=== PATIENT | female | born 1995 | race Two or more races ===

== ENCOUNTER 2019-12-01 09:23 | Inpatient (IN) | payer OTHER ==
[2019-12-01] MEDS ORDERED: ONDANSETRON 4 MG/2 ML VIAL IVPUSH ONE (09:31)
[2019-12-01] MEDS ORDERED: ACETAMINOPHEN 1000 MG/100 ML VIAL (NON FORMULARY) IVPB ONE (09:31)
[2019-12-01] MEDS ORDERED: SODIUM CHLORIDE 1,000 ML IV STA (09:31)
--- NOTE | 2019-12-01 09:32 | PDOC ---
Rapid Medical Evaluation Chief Complaint: Pain Time Seen by Provider: 12/01/19 09:28 Medical Evaluation: 12/01/19 09:28 Pt is a 24 y/o F BIBA, presents for flank pain and nausea since Friday. Exam: R CVA tenderness, Febrile 101F oral Orders: labs, fluids, urine Pt to proceed to the ER for further evaluation Discharge Disposition - Diagnosis Flank pain - Referrals - Patient Instructions - Post Discharge Activity
[2019-12-01] MEDS ORDERED: ACETAMINOPHEN INJECTION 100 ML IVPB ONE (09:56)
[2019-12-01 10:11] LABS: BASO % 0.3 % (0-2.0); EOS % 0.6 % (0-4.5); HEMATOCRIT 39.7 % (32.4-45.2); HEMOGLOBIN 12.6 GM/dL (10.7-15.3); LYMPH % 5.1 % (8-40); MCH 25.5 pg (25.7-33.7); MCHC 31.8 g/dl (32.0-36.0); MEAN CELL VOLUME 80.1 fl (80-96); MONO % 0.7 % (3.8-10.2); NEUT % 93.3 % (42.8-82.8); PLATELET COUNT 210 K/MM3 (134-434); RBC 4.95 M/mm3 (3.60-5.2); RDW 14.9 % (11.6-15.6); WHITE BLOOD COUNT 9.8 K/mm3 (4.0-10.0)
--- NOTE | 2019-12-01 10:23 | PDOC ---
Documentation entered by Jeane Olsen SCRIBE, acting as scribe for David Bee MD. David Bee MD: This documentation has been prepared by the Pretty dunbar Nirvannie, SCRIBE, under my direction and personally reviewed by me in its entirety. I confirm that the documentation accurately reflects all work, treatment, procedures, and medical decision making performed by me. History of Present Illness - General Chief Complaint: Pain Stated Complaint: LOWER BACK PAIN Time Seen by Provider: 12/01/19 09:28 History Source: Patient Exam Limitations: No Limitations - History of Present Illness Initial Comments: 12/01/19 10:06 The patient is a 24 year old female with no significant past medical history who presents to the ED via EMS with 3 days of lower back pain with radiation to the right flank. As per patient, she experiences similar symptoms on her menses but it usually occurs in the beginning of her cycle and resolves with the aid of Advil or Midol. Today, she notes it is the end of her cycle and her symptoms persisted. Pt states she was nauseous in the ambulance, which since resolved. She denies any vomiting. Notes that she took one of her mother's oxycodones before arrival. No prior history of UTI or history of renal calculi. She denies any abdominal pain. She denies any dysuria, urinary frequency, urinary urgency, or hematuria. Allergies: NKDA Past History - Medical History Allergies/Adverse Reactions: Allergies Allergy/AdvReac Type Severity Reaction Status Date / Time No Known Allergies Allergy Verified 12/01/19 09:30 Home Medications: Ambulatory Orders NK [No Known Home Medication] 12/01/19 COPD: No - Psycho-Social/Smoking History Smoking History: Never smoked - Substance Abuse Hx (Audit-C & DAST Scrn) How often the patient has a drink containing alcohol: Never Score: In Men: 4 or > Positive; In Women: 3 or > Positive: 0 Screen Result (Pos requires Nsg. Audit-10AR): Negative Review of Systems - Review of Systems Able to Perform ROS?: Yes Comments:: 12/01/19 10:07 GENERAL/CONSTITUTIONAL: No fever or chills. No weakness. HEAD, EYES, EARS, NOSE AND THROAT: No change in vision. No ear pain or discharge. No sore throat. CARDIOVASCULAR: No chest pain, no shortness of breath, no loss of consciousness RESPIRATORY: No cough, wheezing, or hemoptysis. GASTROINTESTINAL: No nausea, vomiting, diarrhea or constipation. GENITOURINARY: +Right flank pain. No dysuria, frequency, or change in urination. MUSCULOSKELETAL: +Right lower back pain. No joint or muscle swelling or pain. No neck or back pain. SKIN: No rash NEUROLOGIC: No vertigo, no change in strength/sensation. ENDOCRINE: No increased thirst. No abnormal weight change. HEMATOLOGIC/LYMPHATIC: No anemia, easy bleeding, or history of blood clots. ALLERGIC/IMMUNOLOGIC: No hives or skin allergy. All Other Systems: Reviewed and Negative *Physical Exam - Vital Signs Last Vital Signs Temp Pulse Resp BP Pulse Ox 101.8 F H 121 H 18 132/91 100 12/01/19 09:28 12/01/19 09:28 12/01/19 09:28 12/01/19 09:28 12/01/19 09:28 - Physical Exam 12/01/19 10:25 "GENERAL: Awake, alert, and fully oriented, in no acute distress. HEAD: No signs of trauma EYES: PERRLA, EOMI, sclera anicteric, conjunctiva clear ENT: Auricles normal inspection, hearing grossly normal, nares patent, oropharynx clear without exudates. Moist mucosa NECK: Nontender, no stepoffs, Normal ROM, supple, no lymphadenopathy, JVD, or masses LUNGS: Breath sounds equal, clear to auscultation bilaterally. No wheezes, and no crackles HEART: Regular rate and rhythm, normal S1 and S2, no murmurs, rubs or gallops ABDOMEN: Soft, nontender, normoactive bowel sounds. No guarding, no rebound. No masses EXTREMITIES: Normal range of motion, no edema. No clubbing or cyanosis. No cords, erythema, or tenderness NEUROLOGICAL: Cranial nerves II through XII intact. 5/5 strength and sensation in all extremities, Normal speech, normal gait, normal cerebellar function SKIN: Warm, Dry, normal turgor, no rashes or lesions noted. BACK: + R CVAT ED Treatment Course - LABORATORY CBC & Chemistry Diagram: 12/01/19 09:40 12/01/19 09:40 Medical Decision Making - Medical Decision Making 12/01/19 10:25 24 F with R flank pain. Suspect pyelo vs nephrolithiasis. Pt with benign abdomen. No RUQ or RLQ tenderness. - Labs, UA - CT - IVF, tylenol 12/01/19 12:50 UA consistent with UTI Pt with bands >10% CT shows R renal stone, R hydronephrosis, no obvious obstructing stone Will admit for pyelo vs infected stone Ceftriaxone given Discharge - Discharge Information Problems reviewed: Yes Clinical Impression/Diagnosis: Flank pain, Pyelonephritis, Nephrolithiasis - Admission Yes - Follow up/Referral - Patient Discharge Instructions - Post Discharge Activity
[2019-12-01 10:42] LABS: INR 0.97 (0.83-1.09); PROTHROMBIN TIME (PATIENT) 11.5 SEC (9.7-13.0)
[2019-12-01 10:47] LABS: ALBUMIN 3.6 g/dl (3.4-5.0); ALK PHOS 61 U/L (45-117); ANION GAP 10 MMOL/L (8-16); BILIRUBIN,TOTAL 0.4 mg/dL (0.2-1); BLOOD UREA NITROGEN 8.4 mg/dL (7-18); CALCIUM 8.5 mg/dL (8.5-10.1); CHLORIDE 110 mmol/L (98-107); CO2 21 mmol/L (21-32); CREATININE 0.8 mg/dL (0.55-1.3); GLUCOSE,RANDOM 97 mg/dL (74-106); POTASSIUM 4.3 mmol/L (3.5-5.1); SGOT/AST 33 U/L (15-37); SGPT/ALT 14 U/L (13-61); SODIUM 141 mmol/L (136-145)
[2019-12-01 10:50] LABS: ANISOCYTOSIS 0; MACROCYTOSIS 0; PLATELET ESTIMATE NORMAL
[2019-12-01 11:18] LABS: EPI CELLS 4 /uL (0-25.1); HCG,QUALITATIVE URINE Negative; HYALINE CASTS 2 /uL (0-3.1); PH,URINE 5.5 (5.0-8.0); URINE APPEARANCE CLOUDY; URINE BILIRUBIN NEGATIVE (NEGATIVE); URINE COLOR YELLOW; URINE GLUCOSE (UA) NEGATIVE (NEGATIVE); URINE KETONE NEGATIVE (NEGATIVE); URINE LEUK ESTERASE 2+ (NEGATIVE); URINE NITRITE POSITIVE (NEGATIVE); URINE PROTEIN 2+ (NEGATIVE); URINE RBC 87 /uL (0-23.9); URINE UROBILINOGEN 0.2 mg/dL (0.2-1.0); URINE WBC 1083 /uL (0-25.8)
[2019-12-01] MEDS ORDERED: CEFTRIAXONE 1,000 MG in DEXTROSE 5%-WATER - 50 ML IVPB ONE (11:20)
[2019-12-01] MEDS ORDERED: cefTRIAXone SODIUM 1 GM VIAL ONE (11:21)
[2019-12-01] MEDS ORDERED: KETOROLAC TROMETHAMINE 15 MG/ML VIAL IVPUSH PRN ×2 (13:33→14:29)
[2019-12-01] MEDS ORDERED: TAMSULOSIN HCL 0.4 MG CAP PO ONE (13:38)
--- NOTE | 2019-12-01 14:00 | HP ---
CHIEF COMPLAINT: Right sided back/flank pain PCP: None HISTORY OF PRESENT ILLNESS: This is a 24 year old female with no PMH, presented to the ER with R flank and back pain. The pain began while she was asleep, it was sudden in onset, 9/10 in intensity, constant in nature, sharp in quality, radiating to the R flank, aggravated by movement, and partially relieved by Advil. This was associated with a subjective fever this morning, but no diaphoresis, chills, hematuria, dysuria, SOB, nausea, vomiting, or diarrhea. She has had similar pain in the back, immediately after cessation of her menstrual cycle, relieved by Advil. However, this pain began during her menstrual cycle and has only partially resolved with Advil. She has no family history of renal stones/colic. ER course was notable for: (1) UA: 2+ LE, 2+ Blood, 2+ Protein 1083 WBC, >10k bacteria (2) CTAP wo contrast: 2mm non obstructing R renal stone with mild hydronephrosis (3) Ceftriaxone 1g Recent Travel: Denies PAST MEDICAL HISTORY: None PAST SURGICAL HISTORY: None Social History: Smoking: denies Alcohol: denies Drugs: denies Allergies No Known Allergies Allergy (Verified 12/01/19 09:30) HOME MEDICATIONS: Home Medications Medication Instructions Recorded NK [No Known Home Medication] 12/01/19 REVIEW OF SYSTEMS CONSTITUTIONAL: fever Absent: fever, chills, diaphoresis, generalized weakness, malaise, loss of appetite, weight change HEENT: Absent: rhinorrhea, nasal congestion, throat pain, throat swelling, difficulty swallowing, mouth swelling, ear pain, eye pain, visual changes CARDIOVASCULAR: Absent: chest pain, syncope, palpitations, irregular heart rate, lightheadedness, peripheral edema RESPIRATORY: Absent: cough, shortness of breath, dyspnea with exertion, orthopnea, wheezing, stridor, hemoptysis GASTROINTESTINAL: Absent: abdominal pain, abdominal distension, nausea, vomiting, diarrhea, constipation, melena, hematochezia GENITOURINARY: flank pain Absent: dysuria, frequency, urgency, hesitancy, hematuria, flank pain, genital pain MUSCULOSKELETAL: Absent: myalgia, arthralgia, joint swelling, back pain, neck pain SKIN: Absent: rash, itching, pallor HEMATOLOGIC/IMMUNOLOGIC: Absent: easy bleeding, easy bruising, lymphadenopathy, frequent infections ENDOCRINE: Absent: unexplained weight gain, unexplained weight loss, heat intolerance, cold intolerance NEUROLOGIC: Absent: headache, focal weakness or paresthesias, dizziness, unsteady gait, seizure, mental status changes, bladder or bowel incontinence PSYCHIATRIC: Absent: anxiety, depression, suicidal or homicidal ideation, hallucinations. PHYSICAL EXAMINATION Vital Signs - 24 hr 12/01/19 12/01/19 12/01/19 09:28 11:07 12:18 Temperature 101.8 F H 99.7 F H Pulse Rate 121 H Pulse Rate [ 82 Left] Respiratory 18 16 Rate Blood Pressure 132/91 Blood Pressure 103/58 L [Right Arm] O2 Sat by Pulse 100 99 Oximetry (%) GENERAL: Awake, alert, and fully oriented, in no acute distress. HEAD: Normal with no signs of trauma. EYES: Pupils equal, round and reactive to light, extraocular movements intact, sclera anicteric, conjunctiva clear. No lid lag. EARS, NOSE, THROAT: Ears normal, nares patent, oropharynx clear without exudates. Moist mucous membranes. NECK: Normal range of motion, supple without lymphadenopathy, JVD, or masses. LUNGS: Breath sounds equal, clear to auscultation bilaterally. No wheezes, and no crackles. No accessory muscle use. HEART: Regular rate and rhythm, normal S1 and S2 without murmur, rub or gallop. ABDOMEN: Soft, nontender, not distended, moderate R CVA tenderness MUSCULOSKELETAL: Normal range of motion at all joints. No bony deformities or tenderness. No CVA tenderness. UPPER EXTREMITIES: 2+ pulses, warm, well-perfused. No cyanosis. No clubbing. No peripheral edema. LOWER EXTREMITIES: Band Aid over anterior aspect of L distal lower extremity (mosquito bite), no edema, pulses intact NEUROLOGICAL: Cranial nerves II-XII intact. Normal speech. Normal gait. PSYCHIATRIC: Cooperative. Good eye contact. Appropriate mood and affect. SKIN: Warm, dry, normal turgor, no rashes or lesions noted, normal capillary refill. Laboratory Results - last 24 hr 12/01/19 12/01/19 12/01/19 09:40 09:40 09:40 WBC 9.8 RBC 4.95 Hgb 12.6 Hct 39.7 MCV 80.1 MCH 25.5 L MCHC 31.8 L RDW 14.9 Plt Count 210 MPV 10.0 Absolute Neuts (auto) 9.2 H Neutrophils % 93.3 H Neutrophils % (Manual) 81.1 Band Neutrophils % 10.4 Lymphocytes % 5.1 L Lymphocytes % (Manual) 5.7 L Monocytes % 0.7 L Monocytes % (Manual) 0 L Eosinophils % 0.6 Eosinophils % (Manual) 0.9 Basophils % 0.3 Basophils % (Manual) 0.0 Myelocytes % (Man) 0 Promyelocytes % (Man) 0 Blast Cells % (Manual) 0 Nucleated RBC % 0 Metamyelocytes 0 Hypochromia 0 Platelet Estimate Normal Polychromasia 0 Anisocytosis 0 Microcytosis 0 Macrocytosis 0 PT with INR 11.50 INR 0.97 Sodium 141 Potassium 4.3 Chloride 110 H Carbon Dioxide 21 Anion Gap 10 BUN 8.4 Creatinine 0.8 Est GFR (CKD-EPI)AfAm 120.44 Est GFR (CKD-EPI)NonAf 103.92 Random Glucose 97 Calcium 8.5 Total Bilirubin 0.4 AST 33 ALT 14 Alkaline Phosphatase 61 Total Protein 7.0 Albumin 3.6 Urine Color Urine Appearance Urine pH Ur Specific [place] Urine Protein Urine Glucose (UA) Urine Ketones Urine Blood Urine Nitrite Urine Bilirubin Urine Urobilinogen Ur Leukocyte Esterase Urine WBC (Auto) Urine RBC (Auto) Urine Casts (Auto) U Epithel Cells (Auto) Urine Bacteria (Auto) Urine HCG, Qual 12/01/19 11:00 WBC RBC Hgb Hct MCV MCH MCHC RDW Plt Count MPV Absolute Neuts (auto) Neutrophils % Neutrophils % (Manual) Band Neutrophils % Lymphocytes % Lymphocytes % (Manual) Monocytes % Monocytes % (Manual) Eosinophils % Eosinophils % (Manual) Basophils % Basophils % (Manual) Myelocytes % (Man) Promyelocytes % (Man) Blast Cells % (Manual) Nucleated RBC % Metamyelocytes Hypochromia Platelet Estimate Polychromasia Anisocytosis Microcytosis Macrocytosis PT with INR INR Sodium Potassium Chloride Carbon Dioxide Anion Gap BUN Creatinine Est GFR (CKD-EPI)AfAm Est GFR (CKD-EPI)NonAf Random Glucose Calcium Total Bilirubin AST ALT Alkaline Phosphatase Total Protein Albumin Urine Color Yellow Urine Appearance Cloudy Urine pH 5.5 Ur Specific [place] 1.019 Urine Protein 2+ H Urine Glucose (UA) Negative Urine Ketones Negative Urine Blood 2+ H Urine Nitrite Positive H Urine Bilirubin Negative Urine Urobilinogen 0.2 Ur Leukocyte Esterase 2+ H Urine WBC (Auto) 1083 Urine RBC (Auto) 87 Urine Casts (Auto) 2 U Epithel Cells (Auto) 4 Urine Bacteria (Auto) >10,000 Urine HCG, Qual Negative ASSESSMENT/PLAN: 24 year old female with no PMH, presented to the ER with R flank pain for the past 3 days, found to have 2mm non obstructing R renal stone with mild hydronephrosis and asymptomatic UTI on UA, admitted for management of nephrolithiasis/pyelonephritis. #Obstructing calculus - Unclear etiology, will strain urine and order Urine Ca to explore potential causes - CTAP wo contrast: 2mm non obstructing R renal stone with mild hydronephrosis - No evidence of sepsis, stone <10mm, no indication for urgent ESWL/nephrolithotomy, will facilitate stone passage and consult urology - Urology (Dr. Luu) consulted - Started on Tamsulosin 0.4mg daily - Started on Ketorolac 15mg Q6H for pain control - WBC 12.5 with ANC 11.1 with stable vitals, likely reactive to stress from pain, will monitor and hold off on abx for now - BP elevation also likely 2/2 pain, will monitor #UTI/Hematuria - UA: 2+ LE, 2+ Blood, 2+ Protein 1083 WBC, >10k bacteria - Ceftriaxone 1g daily - N/S @ 100 started - Urine cx sent #Proteinuria - Proteinuria likely post-renal due to concurrent infection - Will monitor for now, recommend repeat UA once infection subsides to check for protein #FEN - N/S @ 100 - NPO for possible procedure in AM #Prophylaxis - SCDs, holding chemical AC for possible procedure in AM #Dispo - Will monitor in M/S and F/U with urology recs for procedural intervention vs passive stone facilitation Visit type - Emergency Visit Emergency Visit: Yes ED Registration Date: 12/01/19 Care time: The patient presented to the Emergency Department on the above date and was hospitalized for further evaluation of their emergent condition. - New Patient This patient is new to me today: Yes Date on this admission: 12/02/19 - Critical Care Critical Care patient: No ATTENDING PHYSICIAN STATEMENT I saw and evaluated the patient. I reviewed the resident's note and discussed the case with the resident. I agree with the resident's findings and plan as documented. SUBJECTIVE: OBJECTIVE: ASSESSMENT AND PLAN:
--- NOTE | 2019-12-01 14:18 | PN ---
Teaching Attending Note Name of Resident: Alvin Cottrell ATTENDING PHYSICIAN STATEMENT I saw and evaluated the patient. I reviewed the resident's note and discussed the case with the resident. I agree with the resident's findings and plan as documented. SUBJECTIVE: Right side pain 24 y/o female without any pmhx presents with acute onset right sided flank pain. Pain began friday and has been intermittent until today when it was more intense in pain bringing her to the ED for further eval. She deneis any blood in her urine, no dysuria or urine frequency. Pain radiates towards the front of her abdomen. No fevers, chills, nausea or vomiting PMHX: None PSHX: None Meds: None Allergies: NKDA Social HX: denies nay tobacco, drug or alcohol use Family Hx: denies OBJECTIVE: Vital Signs Temperature 99.7 F H 12/01/19 11:07 Pulse Rate 82 12/01/19 12:18 Respiratory Rate 16 12/01/19 12:18 Blood Pressure 103/58 L 12/01/19 12:18 O2 Sat by Pulse Oximetry (%) 99 12/01/19 12:18 Gen: Pt nontoxic, A and O, NAD HEENT: NC/AT, EOMI, Orophayrnx - clear Neck: supple CV: Pos S1, S2, RRR Chest: CTA misty, no r/r/w Abd: soft, NT, ND, Pos BS, no suprapubic tenderness Back: Pos Right CVA Tenderness to palpation Ext: No c/c/e Skin: no rashes CBC,CMP WBC 9.8 K/mm3 (4.0-10.0) 12/01/19 09:40 RBC 4.95 M/mm3 (3.60-5.2) 12/01/19 09:40 Hgb 12.6 GM/dL (10.7-15.3) 12/01/19 09:40 Hct 39.7 % (32.4-45.2) 12/01/19 09:40 MCV 80.1 fl (80-96) 12/01/19 09:40 MCH 25.5 pg (25.7-33.7) L 12/01/19 09:40 MCHC 31.8 g/dl (32.0-36.0) L 12/01/19 09:40 RDW 14.9 % (11.6-15.6) 12/01/19 09:40 Plt Count 210 K/MM3 (134-434) 12/01/19 09:40 MPV 10.0 fl (7.5-11.1) 12/01/19 09:40 Absolute Neuts (auto) 9.2 K/mm3 (1.5-8.0) H 12/01/19 09:40 Neutrophils % 93.3 % (42.8-82.8) H 12/01/19 09:40 Neutrophils % (Manual) 81.1 % (42.8-82.8) 12/01/19 09:40 Band Neutrophils % 10.4 % 12/01/19 09:40 Lymphocytes % 5.1 % (8-40) L 12/01/19 09:40 Lymphocytes % (Manual) 5.7 % (8-40) L 12/01/19 09:40 Monocytes % 0.7 % (3.8-10.2) L 12/01/19 09:40 Monocytes % (Manual) 0 % (3.8-10.2) L 12/01/19 09:40 Eosinophils % 0.6 % (0-4.5) 12/01/19 09:40 Eosinophils % (Manual) 0.9 % (0-4.5) 12/01/19 09:40 Basophils % 0.3 % (0-2.0) 12/01/19 09:40 Basophils % (Manual) 0.0 % (0-2.0) 12/01/19 09:40 Myelocytes % (Man) 0 % (0-2) 12/01/19 09:40 Promyelocytes % (Man) 0 % (0-2) 12/01/19 09:40 Blast Cells % (Manual) 0 % (0-0) 12/01/19 09:40 Nucleated RBC % 0 % (0-0) 12/01/19 09:40 Metamyelocytes 0 % (0-2) 12/01/19 09:40 Hypochromia 0 12/01/19 09:40 Platelet Estimate Normal 12/01/19 09:40 Polychromasia 0 12/01/19 09:40 Anisocytosis 0 12/01/19 09:40 Microcytosis 0 12/01/19 09:40 Macrocytosis 0 12/01/19 09:40 Sodium 141 mmol/L (136-145) 12/01/19 09:40 Potassium 4.3 mmol/L (3.5-5.1) 12/01/19 09:40 Chloride 110 mmol/L (98-107) H 12/01/19 09:40 Carbon Dioxide 21 mmol/L (21-32) 12/01/19 09:40 Anion Gap 10 MMOL/L (8-16) 12/01/19 09:40 BUN 8.4 mg/dL (7-18) 12/01/19 09:40 Creatinine 0.8 mg/dL (0.55-1.3) 12/01/19 09:40 Est GFR (CKD-EPI)AfAm 120.44 12/01/19 09:40 Est GFR (CKD-EPI)NonAf 103.92 12/01/19 09:40 Random Glucose 97 mg/dL (74-106) 12/01/19 09:40 Calcium 8.5 mg/dL (8.5-10.1) 12/01/19 09:40 Total Bilirubin 0.4 mg/dL (0.2-1) 12/01/19 09:40 AST 33 U/L (15-37) 12/01/19 09:40 ALT 14 U/L (13-61) 12/01/19 09:40 Alkaline Phosphatase 61 U/L (45-117) 12/01/19 09:40 Total Protein 7.0 g/dl (6.4-8.2) 12/01/19 09:40 Albumin 3.6 g/dl (3.4-5.0) 12/01/19 09:40 CT abd/pelvis: pos right nephrolithiasis with mild right hydronephrosis UA: Pos nitrite, leuk esterase, protein ASSESSMENT AND PLAN: 24 y/o female without pmhx admitted with right nephrolithiasis/right hydro and UTI *right renal colic - due to right nephrolithiasis ?infected stone Uro eval Hydrate generously Analgesics strain urine Cover with rocephin Check urine preg first *UTI - f/u urine culture Rocephin Vitals stable, non toxic *dvt prophy - venodynes while in bed, ambulate Problem List - Problems (1) Nephrolithiasis Code(s): N20.0 - CALCULUS OF KIDNEY (2) Pyelonephritis Code(s): N12 - TUBULO-INTERSTITIAL NEPHRITIS, NOT SPCF ACUTE OR CHRONIC
[2019-12-01] MEDS ORDERED: KETOROLAC TROMETHAMINE 30 MG/1 ML VIAL IVPUSH ONE (15:33)
[2019-12-01] MEDS ORDERED: KETOROLAC TROMETHAMINE 30 MG/1 ML VIAL ONE (15:34)
[2019-12-01] MEDS ORDERED: TAMSULOSIN HCL 0.4 MG CAP ONE (15:37)
[2019-12-01] MEDS: SODIUM CHLORIDE 1,000 ML IV SCH (15:42)
[2019-12-01 17:55] VITALS: BMI 25.0
[2019-12-02] MEDS: SODIUM CHLORIDE 1,000 ML IV SCH ×2 (03:16→17:55)
[2019-12-02 07:23] LABS: HEMATOCRIT 34.7 % (32.4-45.2); HEMOGLOBIN 10.8 GM/dL (10.7-15.3); MCH 24.7 pg (25.7-33.7); MEAN CELL VOLUME 79.6 fl (80-96); PLATELET COUNT 219 K/MM3 (134-434); RBC 4.36 M/mm3 (3.60-5.2); WHITE BLOOD COUNT 15.6 K/mm3 (4.0-10.0)
[2019-12-02 07:32] LABS: INR 1.3 (0.83-1.09); PROTHROMBIN TIME (PATIENT) 15.4 SEC (9.7-13.0)
[2019-12-02 07:57] LABS: ALBUMIN 2.9 g/dl (3.4-5.0); BILIRUBIN,TOTAL 0.6 mg/dL (0.2-1); BLOOD UREA NITROGEN 6.9 mg/dL (7-18); CALCIUM 7.9 mg/dL (8.5-10.1); CREATININE 0.7 mg/dL (0.55-1.3); MAGNESIUM 1.8 mg/dL (1.8-2.4); POTASSIUM 4.2 mmol/L (3.5-5.1); TOT PROT 5.8 g/dl (6.4-8.2)
[2019-12-02] MEDS ORDERED: DEXTROSE 5%-WATER - 50 ML IVPB ONE (09:07)
[2019-12-02] MEDS ORDERED: cefTRIAXone SODIUM 1 GM VIAL ONE (09:07)
[2019-12-02] MEDS: CEFTRIAXONE 1 GM in DEXTROSE 5%-WATER - 50 ML IVPB SCH (09:28)
[2019-12-02] MEDS: TAMSULOSIN HCL 0.4 MG CAP PO SCH (09:28)
[2019-12-02] MEDS ORDERED: ENOXAPARIN NA (PORCINE) 40 MG/0.4 ML DISP.SYRIN SQ SCH (10:00)
--- NOTE | 2019-12-02 16:50 | PN ---
Teaching Attending Note Name of Resident: Vlad Benitez ATTENDING PHYSICIAN STATEMENT I saw and evaluated the patient. I reviewed the resident's note and discussed the case with the resident. I agree with the resident's findings and plan as documented. SUBJECTIVE: Abdominal/flank pain improved. No nausea/vomiting. No fever/chills. OBJECTIVE: Afebrile, Hemodynamically Stable. Last Vital Signs Temp Pulse Resp BP Pulse Ox 98.6 F 99 H 18 123/73 99 12/02/19 14:00 12/02/19 14:00 12/02/19 14:00 12/02/19 14:00 12/02/19 14:00 HEENT - Atraumatic, normocephalic. Heart - S1, S2, RRR Lungs - clear to auscultation Abdomen - Soft, non-tender. No CVA tenderness. Bowel Sounds normal. Extremities - no edema, no calf tenderness. Neuro - AAO x 3. Tone/Power normal all extremities. Laboratory Results - last 24 hr 12/01/19 12/01/19 12/01/19 09:40 13:00 17:23 WBC RBC Hgb Hct MCV MCH MCHC RDW Plt Count MPV PT with INR INR Sodium 141 Potassium 4.3 Chloride 110 H Carbon Dioxide 21 Anion Gap 10 BUN 8.4 Creatinine 0.8 Est GFR (CKD-EPI)AfAm 120.44 Est GFR (CKD-EPI)NonAf 103.92 Random Glucose 97 Calcium 8.5 Phosphorus Magnesium Total Bilirubin 0.4 AST 33 ALT 14 Alkaline Phosphatase 61 Total Protein 7.0 Albumin 3.6 Beta HCG, Quant < 1.0 Cancelled COVID-19 (ANNA) Not detected 12/02/19 12/02/19 12/02/19 06:45 06:45 06:45 WBC 15.6 H RBC 4.36 Hgb 10.8 Hct 34.7 MCV 79.6 L MCH 24.7 L MCHC 31.0 L RDW 15.0 Plt Count 219 MPV 9.0 PT with INR 15.40 H INR 1.30 H Sodium 141 Potassium 4.2 Chloride 110 H Carbon Dioxide 22 Anion Gap 10 BUN 6.9 L Creatinine 0.7 Est GFR (CKD-EPI)AfAm 141.54 Est GFR (CKD-EPI)NonAf 122.12 Random Glucose 87 Calcium 7.9 L Phosphorus 3.0 Magnesium 1.8 Total Bilirubin 0.6 AST 18 ALT 12 L Alkaline Phosphatase 54 Total Protein 5.8 L Albumin 2.9 L Beta HCG, Quant COVID-19 (ANNA) Current Medications Generic Name Dose Route Start Last Admin Trade Name Freq PRN Reason Stop Dose Admin Ceftriaxone Sodium 1 gm/ 50 mls @ 200 mls/hr 12/02/19 10:00 12/02/19 09:28 Dextrose IVPB 200 mls/hr DAILY VANCE Administration Protocol Sodium Chloride 1,000 mls @ 100 mls/hr 12/01/19 14:15 12/02/19 03:16 Normal Saline - IV 100 mls/hr ASDIR VANCE Administration Ketorolac Tromethamine 15 mg 12/01/19 14:29 12/02/19 03:01 Toradol Injection - IVPUSH 12/06/19 13:32 15 mg Q6H PRN Administration PAIN LEVEL 6-10 Tamsulosin HCl 0.4 mg 12/02/19 08:30 12/02/19 09:28 Flomax - PO 0.4 mg DAILY@0830 VANCE Administration Home Medications Medication Instructions Recorded NK [No Known Home Medication] 12/01/19 ASSESSMENT/PLAN: 24 year old female with no significant PMH, presented with acute onset R sided back/flank pain, found to have Nephrolithiasis and UTI. CT A/P - R Nephrolithiasis (2mm calculus) and mild hydronephrosis 1. Sepsis secondary to Acute complicated UTI - in setting of nephrolithiais Leukocytosis and Fever overnight. Urine Cx pos for LFNB > 100,000 CFU/ml. Afebrile, Hemodynamically Stable. No CVA tenderness Continue empiric Ceftriaxone pending final ID and Sensitivity. 2. R Nephrolithiasis with mild Hydronephrosis Started on Tamsulosin and IV hydration Urology consulted. DVT Px - Heparin SQ
[2019-12-02] MEDS ORDERED: ACETAMINOPHEN 500 MG TABLET (FP) PO PRN (18:03)
[2019-12-02] MEDS: HEPARIN NA (PORCINE) 5,000 UNITS/ML 1ML VIAL SQ SCH (21:24)
--- NOTE | 2019-12-02 22:29 | PN ---
Physical Exam: SUBJECTIVE: No overnight events. Patient seen and examined. Pt has no complaints. OBJECTIVE: Vital Signs Period Temp Pulse Resp BP Sys/Horowitz Pulse Ox Last 24 Hr 98.4 F-100.2 F 75-99 18-20 118-141/60-83 96-100 GENERAL: The patient is awake, alert, and fully oriented, in no acute distress. HEENT: NT/NC, No ptosis, MMM LUNGS: Breath sounds equal, clear to auscultation bilaterally, no wheezes, no crackles, no accessory muscle use. HEART: Regular rate and rhythm, S1, S2 without murmur, rub or gallop. ABDOMEN: Soft, nontender, nondistended, normoactive bowel sounds, no guarding BACK: no CVA tenderness NEUROLOGICAL: Normal speech, gait not observed. PSYCH: Normal mood, normal affect. SKIN: Warm, dry, normal turgor. lesions where patient scratched mosquito bites on her b/l legs Laboratory Results - last 24 hr 12/01/19 12/02/19 12/02/19 13:00 06:45 06:45 WBC 15.6 H RBC 4.36 Hgb 10.8 Hct 34.7 MCV 79.6 L MCH 24.7 L MCHC 31.0 L RDW 15.0 Plt Count 219 MPV 9.0 PT with INR 15.40 H INR 1.30 H Sodium Potassium Chloride Carbon Dioxide Anion Gap BUN Creatinine Est GFR (CKD-EPI)AfAm Est GFR (CKD-EPI)NonAf Random Glucose Calcium Phosphorus Magnesium Total Bilirubin AST ALT Alkaline Phosphatase Total Protein Albumin COVID-19 (ANNA) Not detected 12/02/19 06:45 WBC RBC Hgb Hct MCV MCH MCHC RDW Plt Count MPV PT with INR INR Sodium 141 Potassium 4.2 Chloride 110 H Carbon Dioxide 22 Anion Gap 10 BUN 6.9 L Creatinine 0.7 Est GFR (CKD-EPI)AfAm 141.54 Est GFR (CKD-EPI)NonAf 122.12 Random Glucose 87 Calcium 7.9 L Phosphorus 3.0 Magnesium 1.8 Total Bilirubin 0.6 AST 18 ALT 12 L Alkaline Phosphatase 54 Total Protein 5.8 L Albumin 2.9 L COVID-19 (ANNA) Active Medications Generic Name Dose Route Start Last Admin Trade Name Freq PRN Reason Stop Dose Admin Acetaminophen 500 mg 12/02/19 18:03 Tylenol - PO Q6H PRN PAIN LEVEL 6-10 Heparin Sodium (Porcine) 5,000 unit 12/02/19 22:00 12/02/19 21:24 Heparin - SQ 5,000 unit TID VANCE Administration Ceftriaxone Sodium 1 gm/ 50 mls @ 200 mls/hr 12/02/19 10:00 12/02/19 09:28 Dextrose IVPB 200 mls/hr DAILY VANCE Administration Protocol Sodium Chloride 1,000 mls @ 100 mls/hr 12/01/19 14:15 12/02/19 17:55 Normal Saline - IV 100 mls/hr ASDIR VANEC Administration Tamsulosin HCl 0.4 mg 12/02/19 08:30 12/02/19 09:28 Flomax - PO 0.4 mg DAILY@0830 VANCE Administration ASSESSMENT/PLAN: 24 YO F no significant PMH p/w 3 days R flank pain, found to pyelonephritis 2/2 lactose fermenting neg bacilli, awaiting sensitivity. 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 Nicholas spoke with Urology (Dr. Steen), and recommended medical management currently #FEN - NS @ 100 ml/hr -Monitor Lytes - Regular diet NPO for possible procedure in AM #DVT PPX - SCDs - Heparin sq TID #DISPO maintain med surg Visit type - Emergency Visit Emergency Visit: Yes ED Registration Date: 12/01/19 Care time: The patient presented to the Emergency Department on the above date and was hospitalized for further evaluation of their emergent condition. - New Patient This patient is new to me today: Yes Date on this admission: 12/02/19 - Critical Care Critical Care patient: No ATTENDING PHYSICIAN STATEMENT I saw and evaluated the patient. I reviewed the resident's note and discussed the case with the resident. I agree with the resident's findings and plan as documented. SUBJECTIVE: OBJECTIVE: ASSESSMENT AND PLAN:
[2019-12-03] MEDS ORDERED: PT OWN MED DRAWER 7, Y5N ONE (04:31)
[2019-12-03] MEDS: HEPARIN NA (PORCINE) 5,000 UNITS/ML 1ML VIAL SQ SCH ×2 (06:25→15:36)
[2019-12-03 08:42] LABS: BASO % 0.6 % (0-2.0); EOS % 0.6 % (0-4.5); HEMATOCRIT 34.3 % (32.4-45.2); LYMPH % 12.2 % (8-40); MCH 25.6 pg (25.7-33.7); MCHC 32.2 g/dl (32.0-36.0); MEAN CELL VOLUME 79.4 fl (80-96); MEAN PLT VOLUME 9.7 fl (7.5-11.1); MONO % 13.7 % (3.8-10.2); NEUT % 72.9 % (42.8-82.8); PLATELET COUNT 217 K/MM3 (134-434); RBC 4.31 M/mm3 (3.60-5.2); RDW 14.9 % (11.6-15.6); WHITE BLOOD COUNT 10.8 K/mm3 (4.0-10.0)
[2019-12-03 09:18] LABS: BILIRUBIN,TOTAL 0.4 mg/dL (0.2-1); BLOOD UREA NITROGEN 4.6 mg/dL (7-18); CALCIUM 8.5 mg/dL (8.5-10.1); CREATININE 0.7 mg/dL (0.55-1.3); MAGNESIUM 1.9 mg/dL (1.8-2.4); PHOSPHOROUS 2.3 mg/dL (2.5-4.9); POTASSIUM 3.7 mmol/L (3.5-5.1); TOT PROT 6.2 g/dl (6.4-8.2)
[2019-12-03] MEDS ORDERED: POTASSIUM PHOSPHATE 15 MM in SODIUM CHLORIDE 250 ML IVPB ONE (10:00)
[2019-12-03] MEDS ORDERED: cefTRIAXone SODIUM 1 GM VIAL ONE (10:02)
[2019-12-03] MEDS ORDERED: DEXTROSE 5%-WATER - 50 ML IVPB ONE (10:02)
[2019-12-03] MEDS: TAMSULOSIN HCL 0.4 MG CAP PO SCH (10:11)
[2019-12-03] MEDS: CEFTRIAXONE 1 GM in DEXTROSE 5%-WATER - 50 ML IVPB SCH (10:11)
[2019-12-03] MEDS: SODIUM CHLORIDE 1,000 ML IV SCH ×2 (10:12→15:36)
--- NOTE | 2019-12-03 13:52 | HOSP ---
Subjective - Review of Symptoms Events since last encounter: Discussed case with Dr Bravo, who evaluated the patient on the evening of 12/02/2019 and reviewed the images. He recommended continuing with Tamsulosin, no acute intervention for the renal stone, and outpatient evaluation in his office. Physical Examination Vital Signs: Vital Signs Temperature 98.6 F 12/03/19 10:16 Pulse Rate 71 12/03/19 10:16 Respiratory Rate 20 12/03/19 10:16 Blood Pressure 142/83 12/03/19 10:16 O2 Sat by Pulse Oximetry (%) 97 12/03/19 10:16 Labs: CBC, BMP 12/03/19 07:15 12/03/19 07:15 Visit type - Emergency Visit Emergency Visit: No - New Patient This patient is new to me today: No - Critical Care Critical Care patient: No
--- NOTE | 2019-12-03 14:31 | PN ---
Teaching Attending Note Name of Resident: Vlad Benitez ATTENDING PHYSICIAN STATEMENT I saw and evaluated the patient. I reviewed the resident's note and discussed the case with the resident. I agree with the resident's findings and plan as documented. SUBJECTIVE: Abdominal/flank pain resolved. No nausea/vomiting. No fever/chills. Reported passed stone. OBJECTIVE: Afebrile, Hemodynamically Stable. Last Vital Signs Temp Pulse Resp BP Pulse Ox 98.6 F 71 20 142/83 97 12/03/19 10:16 12/03/19 10:16 12/03/19 10:16 12/03/19 10:16 12/03/19 10:16 Heart - S1, S2, RRR Lungs - clear to auscultation Abdomen - Soft, non-tender. No CVA tenderness. Bowel Sounds normal. Extremities - no edema, no calf tenderness. Neuro - AAO x 3. Tone/Power normal all extremities. Laboratory Results - last 24 hr 12/03/19 12/03/19 07:15 07:15 WBC 10.8 H RBC 4.31 Hgb 11.0 Hct 34.3 MCV 79.4 L MCH 25.6 L MCHC 32.2 RDW 14.9 Plt Count 217 MPV 9.7 Absolute Neuts (auto) 7.9 Neutrophils % 72.9 D Lymphocytes % 12.2 D Monocytes % 13.7 H D Eosinophils % 0.6 Basophils % 0.6 Nucleated RBC % 0 Sodium 139 Potassium 3.7 Chloride 109 H Carbon Dioxide 21 Anion Gap 9 BUN 4.6 L Creatinine 0.7 Est GFR (CKD-EPI)AfAm 141.54 Est GFR (CKD-EPI)NonAf 122.12 Random Glucose 83 Calcium 8.5 Phosphorus 2.3 L Magnesium 1.9 Total Bilirubin 0.4 AST 18 ALT 13 Alkaline Phosphatase 59 Total Protein 6.2 L Albumin 3.0 L Current Medications Generic Name Dose Route Start Last Admin Trade Name Freq PRN Reason Stop Dose Admin Acetaminophen 500 mg 12/02/19 18:03 12/03/19 06:30 Tylenol - PO 500 mg Q6H PRN Administration PAIN LEVEL 6-10 Heparin Sodium (Porcine) 5,000 unit 12/02/19 22:00 12/03/19 06:25 Heparin - SQ 5,000 unit TID VANCE Administration Ceftriaxone Sodium 1 gm/ 50 mls @ 200 mls/hr 12/02/19 10:00 12/03/19 10:11 Dextrose IVPB 200 mls/hr DAILY VANCE Administration Protocol Sodium Chloride 1,000 mls @ 100 mls/hr 12/01/19 14:15 12/03/19 10:12 Normal Saline - IV 100 mls/hr ASDIR VANCE Administration Tamsulosin HCl 0.4 mg 12/02/19 08:30 12/03/19 10:11 Flomax - PO 0.4 mg DAILY@0830 VANCE Administration Home Medications Medication Instructions Recorded Cefpodoxime Proxetil [Vantin -] 200 mg PO Q12H #14 tablet 12/03/19 Tamsulosin HCl [Flomax -] 0.4 mg PO DAILY@0830 #14 cap.er.24h 12/03/19 ASSESSMENT/PLAN: 24 year old female with no significant PMH, presented with acute onset R sided back/flank pain, found to have Nephrolithiasis and UTI. CT A/P - R Nephrolithiasis (2mm calculus) and mild hydronephrosis 1. Sepsis secondary to Acute complicated UTI - in setting of nephrolithiais Leukocytosis and Fever resolved Urine Cx pos for EColi. Afebrile, Hemodynamically Stable. No CVA tenderness Treated empirically with Ceftriaxone - for discharge on Vantin for 7 days 2. R Nephrolithiasis with mild Hydronephrosis Reported passed stone/fragments. Evaluated by Urology - Started on Tamsulosin and follow up as out-patient. 3. Hypophosphatemia - repleted. Dispo- medically stable for discharge on Abx therapy and Urology follow up.
[2019-12-03 14:56] VITALS: BP 133/84; PULSE 73; TEMP 98.1
--- NOTE | 2019-12-05 00:45 | DS ---
Physical Exam: SUBJECTIVE: No overnight events. Patient seen and examined. Pt has no complaints. Reported passing the stone in her urine. OBJECTIVE: PHYSICAL EXAM GENERAL: The patient is awake, alert, and fully oriented, in no acute distress. HEENT: NT/NC, No ptosis, MMM LUNGS: Breath sounds equal, clear to auscultation bilaterally, no wheezes, no crackles, no accessory muscle use. HEART: Regular rate and rhythm, S1, S2 without murmur, rub or gallop. ABDOMEN: Soft, nontender, nondistended, normoactive bowel sounds, no guarding BACK: no CVA tenderness NEUROLOGICAL: Normal speech, gait not observed. PSYCH: Normal mood, normal affect. SKIN: Warm, dry, normal turgor. lesions where patient scratched mosquito bites on her b/l legs LABS Laboratory Last Values WBC 10.8 K/mm3 (4.0-10.0) H 12/03/19 07:15 RBC 4.31 M/mm3 (3.60-5.2) 12/03/19 07:15 Hgb 11.0 GM/dL (10.7-15.3) 12/03/19 07:15 Hct 34.3 % (32.4-45.2) 12/03/19 07:15 MCV 79.4 fl (80-96) L 12/03/19 07:15 MCH 25.6 pg (25.7-33.7) L 12/03/19 07:15 MCHC 32.2 g/dl (32.0-36.0) 12/03/19 07:15 RDW 14.9 % (11.6-15.6) 12/03/19 07:15 Plt Count 217 K/MM3 (134-434) 12/03/19 07:15 MPV 9.7 fl (7.5-11.1) 12/03/19 07:15 Absolute Neuts (auto) 7.9 K/mm3 (1.5-8.0) 12/03/19 07:15 Neutrophils % 72.9 % (42.8-82.8) D 12/03/19 07:15 Neutrophils % (Manual) 81.1 % (42.8-82.8) 12/01/19 09:40 Band Neutrophils % 10.4 % 12/01/19 09:40 Lymphocytes % 12.2 % (8-40) D 12/03/19 07:15 Lymphocytes % (Manual) 5.7 % (8-40) L 12/01/19 09:40 Monocytes % 13.7 % (3.8-10.2) H D 12/03/19 07:15 Monocytes % (Manual) 0 % (3.8-10.2) L 12/01/19 09:40 Eosinophils % 0.6 % (0-4.5) 12/03/19 07:15 Eosinophils % (Manual) 0.9 % (0-4.5) 12/01/19 09:40 Basophils % 0.6 % (0-2.0) 12/03/19 07:15 Basophils % (Manual) 0.0 % (0-2.0) 12/01/19 09:40 Myelocytes % (Man) 0 % (0-2) 12/01/19 09:40 Promyelocytes % (Man) 0 % (0-2) 12/01/19 09:40 Blast Cells % (Manual) 0 % (0-0) 12/01/19 09:40 Nucleated RBC % 0 % (0-0) 12/03/19 07:15 Metamyelocytes 0 % (0-2) 12/01/19 09:40 Hypochromia 0 12/01/19 09:40 Platelet Estimate Normal 12/01/19 09:40 Polychromasia 0 12/01/19 09:40 Anisocytosis 0 12/01/19 09:40 Microcytosis 0 12/01/19 09:40 Macrocytosis 0 12/01/19 09:40 PT with INR 15.40 SEC (9.7-13.0) H 12/02/19 06:45 INR 1.30 (0.83-1.09) H 12/02/19 06:45 Sodium 139 mmol/L (136-145) 12/03/19 07:15 Potassium 3.7 mmol/L (3.5-5.1) 12/03/19 07:15 Chloride 109 mmol/L (98-107) H 12/03/19 07:15 Carbon Dioxide 21 mmol/L (21-32) 12/03/19 07:15 Anion Gap 9 MMOL/L (8-16) 12/03/19 07:15 BUN 4.6 mg/dL (7-18) L 12/03/19 07:15 Creatinine 0.7 mg/dL (0.55-1.3) 12/03/19 07:15 Est GFR (CKD-EPI)AfAm 141.54 12/03/19 07:15 Est GFR (CKD-EPI)NonAf 122.12 12/03/19 07:15 Random Glucose 83 mg/dL (74-106) 12/03/19 07:15 Calcium 8.5 mg/dL (8.5-10.1) 12/03/19 07:15 Phosphorus 2.3 mg/dL (2.5-4.9) L 12/03/19 07:15 Magnesium 1.9 mg/dL (1.8-2.4) 12/03/19 07:15 Total Bilirubin 0.4 mg/dL (0.2-1) 12/03/19 07:15 AST 18 U/L (15-37) 12/03/19 07:15 ALT 13 U/L (13-61) 12/03/19 07:15 Alkaline Phosphatase 59 U/L (45-117) 12/03/19 07:15 Total Protein 6.2 g/dl (6.4-8.2) L 12/03/19 07:15 Albumin 3.0 g/dl (3.4-5.0) L 12/03/19 07:15 Beta HCG, Quant Cancelled 12/01/19 17:23 Urine Color Yellow 12/01/19 11:00 Urine Appearance Cloudy 12/01/19 11:00 Urine pH 5.5 (5.0-8.0) 12/01/19 11:00 Ur Specific [place] 1.019 (1.010-1.035) 12/01/19 11:00 Urine Protein 2+ (NEGATIVE) H 12/01/19 11:00 Urine Glucose (UA) Negative (NEGATIVE) 12/01/19 11:00 Urine Ketones Negative (NEGATIVE) 12/01/19 11:00 Urine Blood 2+ (NEGATIVE) H 12/01/19 11:00 Urine Nitrite Positive (NEGATIVE) H 12/01/19 11:00 Urine Bilirubin Negative (NEGATIVE) 12/01/19 11:00 Urine Urobilinogen 0.2 mg/dL (0.2-1.0) 12/01/19 11:00 Ur Leukocyte Esterase 2+ (NEGATIVE) H 12/01/19 11:00 Urine WBC (Auto) 1083 /uL (0-25.8) 12/01/19 11:00 Urine RBC (Auto) 87 /uL (0-23.9) 12/01/19 11:00 Urine Casts (Auto) 2 /uL (0-3.1) 12/01/19 11:00 U Epithel Cells (Auto) 4 /uL (0-25.1) 12/01/19 11:00 Urine Bacteria (Auto) >10,000 /uL (0-1359) 12/01/19 11:00 Urine HCG, Qual Negative 12/01/19 11:00 COVID-19 (ANNA) Not detected (Not Detected) 12/01/19 13:00 HOSPITAL COURSE: 24 YO F no significant PMH p/w 3 days R flank pain. UA showed 2+LE, 2+Blood, 87 RBCs, 2+protein, 1083 WBC, >10K bacteria, epithelial cells 4. She was started on ceftriaxone for management of sepsis 2/ to UTI. Urine culture showed 100k CFU E. Coli. CTAP without contrast revealed a 2 mm non-obstructing R renal stone w/ mild hydronephrosis. She was given Tamsulosin 0.4mg and started on NS @100 ml/hr. Urology recommended medical management. The patient reported passing the stone. Her symptoms improved. Pt is stable for discharge. Date of Admission:12/01/19 Date of Discharge: 12/03/19 Minutes to complete discharge: 43 Discharge Summary Problems reviewed: Yes Reason For Visit: PYELONEPHRITIS Condition: Improved - Instructions Diet, Activity, Other Instructions: You were evaluated in the hospital for right-sided abdominal pain. Labwork was notable for a urinary tract infection. Urine cultures grew E coli. CT imaging was notable for a small 2mm kidney stone with signs of mild dilation of the right ureter. There were no obvious signs of active obstruction. A urologist was consulted and did not think any procedure was required at that time. He recommended close follow-up at his office. You will be sent home with antibiotics for your infection, and tamsulosin which promotes urine flow. START taking these MEDICATIONS: - Cefpodoxime[VANTIN] 200mg, twice a day for 7days - Tamsulosin HCl[FLOMAX] 0.4mg, once a day for the next 14days - for mild to moderate pain, you can take over the counter acetaminophen every 6-8hours need. Do not take more than 4000mg daily. Please Follow-up with the Physcians below: - Primary Care Physician: please discuss your recent hospitalization - Urologist(Dr Dima Bravo): Within 1-2weeks. Please discuss your right kidney stone stone(2mm), tamsulosin medication regimen, kidney stone analysis Additional Instructions - please stay hydrated throughout the day. Try to drink 5-8 glasses of water daily Please seek immediate medical evaluation if you experience: - fever, chills, severe abdominal pain, painful urination Referrals: Dima Bravo MD., MD [Staff Physician] - Disposition: HOME - Home Medications Comprehensive Discharge Medication List: Ambulatory Orders Cefpodoxime Proxetil [Vantin -] 200 mg PO Q12H #14 tablet 12/03/19 Tamsulosin HCl [Flomax -] 0.4 mg PO DAILY@0830 #14 cap.er.24h 12/03/19 This patient is new to me today: No Emergency Visit: Yes ED Registration Date: 12/01/19 Care time: The patient presented to the Emergency Department on the above date and was hospitalized for further evaluation of their emergent condition. Critical Care patient: No - Discharge Referral Referred to [facility] No ATTENDING PHYSICIAN STATEMENT I saw and evaluated the patient. I reviewed the resident's note and discussed the case with the resident. I agree with the resident's findings and plan as documented. SUBJECTIVE: OBJECTIVE: ASSESSMENT AND PLAN:
[2019-12-20 14:04] LABS: SIZE <1 mm; WEIGHT <1 mg
[2019-12-20 14:15] LABS: CALCIUM CARBONATE 20
== END 2019-12-03 16:40 | disposition home or self-care (01) | DRG 872 ==
LOC: JER 09:23 → JERBED 13:47 → J8W 15:59
PROVIDERS: ADMIT Internal Medicine
DX: A41.51 Sepsis due to Escherichia coli [E. coli] (principal); N13.6 Pyonephrosis; R50.9 Fever, unspecified; E83.39 Other disorders of phosphorus metabolism
CPT/HCPCS: 36415; 74176-TC; 80053; 81003; 82360; 83735; 84100; 84702; 84703; 85025; 85027; 85610; 87086; 87186; 99285-25; J0131; J1644; U0003